=== PATIENT | female | born 1955 | race Hispanic/Latino ===

== ENCOUNTER → 2017-01-22 | Outpatient (CLI) | payer OTHER ==
--- NOTE | 2017-01-22 13:37 | Diagnostic Imaging Report ---
EXAMINATION: Right breast diagnostic mammogram with a Computer Aided Detection (CAD) system. INDICATION: Followup lesion in the medial aspect of the right breast. COMPARISON: 06/21/2016. FINDINGS: The right breast is composed of heterogeneously dense parenchyma which may decrease mammographic sensitivity. The biopsy site demonstrates a smaller nodule with an adjacent biopsy clip seen. 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 No adverse development is seen. IMPRESSION: Benign biopsy results with no adverse development. Return to annual screening mammography which would be due in June 2016. ACR BI-RADS Category 2: Benign findings. Result letter will be mailed to the patient. Note: At least 10% of breast cancer is not imaged by mammography. Dictated by: Dictated on workstation # [id number]
== END ==
LOC: RAD 12:23
PROVIDERS: ATTEND Nurse Practitioner Family
DX: R92.8 Other abnormal and inconclusive findings on diagnostic imaging of breast (principal)